=== PATIENT | female | born 1955 | race Caucasian/White ===

== ENCOUNTER 2016-11-26 12:06 | Outpatient (CLI) | payer BC ==
[2016-11-25 18:21] VITALS: BP 130/70; PULSE 58; TEMP 98
[~2016-11-26 12:06] MED LIST: ASPIRIN E.C. 8181 MG PO; LOPRESSOR 550 MG/TAB PO; MULTIVITAMIN FO1 CAP PO; VASOTEC 5MG5 MG/TAB PO; XARELTO10 MG PO
[2016-11-26] MEDS ORDERED: LOPRESSOR 225 MG/TAB PO (12:34)
[2016-11-26] MEDS ORDERED: TAMBOCOR150 MG PO (12:34)
[2016-11-26] MEDS ORDERED: VASOTEC 5MG5 MG/TAB PO (12:35)
[2016-11-26] MEDS ORDERED: COMPLETE SENIOR1 TA1 PO (12:37)
[2016-11-26] MEDS ORDERED: ZYRTEC 10MG10 MG PO (12:37)
[2016-11-26] MEDS ORDERED: CALCIUM 600-D 61 TAB PO (12:38)
[2016-11-26 12:44] VITALS: BP 115/63; PULSE 49; TEMP 97.3
[2016-11-26 15:00] VITALS: BP 143/62; PULSE 50; TEMP 97.5
== END 2016-11-26 15:19 | disposition home or self-care (01) ==
LOC: COL.RAD 12:06
DX: R00.8 Other abnormalities of heart beat (principal)
CPT/HCPCS: C1764

== ENCOUNTER 2017-08-22 06:37 | Day surgery (SDC) | payer BC ==
[2017-08-22] VITALS (15 sets, daily range): BP systolic 111–157; BP diastolic 50–144; PULSE 54–78; TEMP 97.5–98
[~2017-08-22] VITALS: Ht 160.1 cm; Wt 87.3 kg
[~2017-08-22 06:37] MED LIST changes: +CALCIUM 600-D 61 TAB PO; +COMPLETE SENIOR1 TA1 PO; +LOPRESSOR 225 MG/TAB PO; +TAMBOCOR150 MG PO; +ZYRTEC 10MG10 MG PO
[2017-08-22] MEDS ORDERED: MULTAQ400 MG PO (07:01)
[2017-08-22] MEDS ORDERED: LIPITOR 80MG80 MG PO (07:02)
[2017-08-22] MEDS ORDERED: XARELTO20 MG PO (07:32)
[2017-08-22] MEDS ORDERED: ASPIRIN 81M81 MG/TA2 PO (07:32)
[2017-08-22 07:45] LABS: INR 2.1 (0.8-3.0); PROTHROMBIN TIME 24.5 SECONDS (9.7-12.8)
[2017-08-22 07:47] LABS: POTASSIUM 3.8 mmol/L (3.4-5.0)
[2017-08-22 08:21] LABS: THYROID STIMULATING HORMONE 0.412 uIU/mL (0.465-4.680)
== END 2017-08-22 12:35 | disposition home or self-care (01) ==
LOC: COL.CAR 06:37
PROVIDERS: Internal Medicine Interventional Cardiology
DX: I48.0 Paroxysmal atrial fibrillation (principal); Z79.01 Long term (current) use of anticoagulants; Z95.818 Presence of other cardiac implants and grafts; I42.8 Other cardiomyopathies; E78.5 Hyperlipidemia, unspecified; Z88.0 Allergy status to penicillin
CPT/HCPCS: J1200; J2250; J2930; J3010; J7030

== ENCOUNTER 2020-02-09 09:38 | Inpatient (IN) | payer BC ==
[~2020-02-09 09:38] MED LIST changes: +ASPIRIN 81M81 MG/TA2 PO; +LIPITOR 80MG80 MG PO; +MULTAQ400 MG PO; +XARELTO20 MG PO
--- NOTE | 2020-02-09 10:20 | NUR ---
PT SITTING BY WINDOW, DENIES PAIN OR DISCOMFORT, HR REGULAR, BS+, LUNG SOUNDS CTA, PT HAS MED LIST WITH HER. STATES SHE GETS ITCHY WITH IV'S AND THINKS SHE MAY HAVE LIDOCAINE ALLERGY. PT ALERT AND ORIENTED. CHOOSING TO STAY IN PERSONAL CLOTHES AT THIS TIME.
[2020-02-09 10:55] LABS: CALCIUM 9.3 mg/dL (8.4-10.2); CREATININE, serum 0.52 (0.52-1.25); POTASSIUM 4.2 mmol/L (3.4-5.0)
[2020-02-09 11:20] VITALS: BP 128/56; PULSE 50; TEMP 97.6
[2020-02-09] MEDS ORDERED: TOPROL XL 50MG50 MG PO (11:25)
[2020-02-09 16:15] VITALS: BP 97/52; PULSE 45; TEMP 98
--- NOTE | 2020-02-09 17:29 | NUR ---
Dr. Muller informed of ekg results of sinus yaz. he said that anything over 40BPM was ok. pt is not complaining of pain or discomfort. still in pt clothes. iv in RFA, room air, no other needs at this time.
--- NOTE | 2020-02-09 20:10 | NUR ---
At time of assessment, patient is sitting in chair watching TV. No complaints of pain. Heart sounds are regular/normal. Heart rate is 67, Qtc 396 prior to sotalol administration. Lung sounds are clear. Her lower legs appear slightly edematous but there is no pitting. No new concerns at this time. Will continue to monitor.
[2020-02-09 20:21] VITALS: BP 95/53; PULSE 57; TEMP 97.6
[2020-02-09 23:53] VITALS: BP 102/54; PULSE 50; TEMP 98.3
[2020-02-10 03:59] VITALS: BP 122/51; PULSE 52; TEMP 97.4
--- NOTE | 2020-02-10 05:56 | NUR ---
Patient has had an uneventful night with no complaints. Her heart rate has been sustained in sinus bradycardia. Will continue to monitor.
[2020-02-10 07:34] VITALS: BP 118/57; PULSE 48; TEMP 97.9
[2020-02-10 07:35] LABS: CALCIUM 8.9 mg/dL (8.4-10.2); CREATININE, serum 0.55 (0.52-1.25); POTASSIUM 3.9 mmol/L (3.4-5.0)
--- NOTE | 2020-02-10 08:10 | NUR ---
PT IN ROOM UP TO CHAIR, IN [employer], WANTING TO CONTINUE HOME MEDICATION OF ENALAPRIL AND ASPIRIN. DENIES PAIN OR DISCOMFORT, NO OTHER NEEDS AT THIS TIME. EKG ORDERED FOR 1000 FOR 2 HOUR POST SOTOLOL ADMINISTRATION.
--- NOTE | 2020-02-10 09:34 | NUR ---
LUPE met with the patient to discuss discharge plan. The patient lives in [place] with her , Stephen (ph#[phone]). She reports independence with ADLs and does not have any DME. The patient does not have a PCP at this time. She states that she was seeing Margarita Franco, but that she moved to [place]. She states that she does have some providers in mind in [place] that she plans to get in contact with to establish primary care. The patient does not have advanced directives completed, but she was interested in obtaining a form for DPOA-HC. LUPE provided. The patient plans to return home with her upon discharge. No additional needs at this time.
--- NOTE | 2020-02-10 11:23 | NUR ---
First visit from the cable mock up assembler. No needs right now.
[2020-02-10 11:37] VITALS: BP 98/47; PULSE 53; TEMP 97.6
[2020-02-10 16:22] VITALS: BP 106/54; PULSE 51; TEMP 97.9
--- NOTE | 2020-02-10 17:20 | NUR ---
UNEVENTFUL SHIFT UNTIL 1700. PT COMPLAINING OF RASH. VISUALIZED RASH ON INNER THIGH AND OUTER THIGH, SPOT OF RED IRRITATION ON L UPPER ARM WELL. CLAIR CONTACTED AND ORDERED BENADRYL. PT STATES THAT THIS IS NOT NEW FOR HER AND BENADRYL NORMALLY TAKES CARE OF THE ISSUE. DENIES FEELING HOT OR SOB. NO OTHER NEEDS AT THIS TIME.
[2020-02-10 19:36] VITALS: BP 115/51; PULSE 63; TEMP 97.6
--- NOTE | 2020-02-10 20:34 | NUR ---
At time of assessment, patient is awake in the chair. She is alert and oriented, heart sounds normal/regular, lungs clear, 1+ pitting edema in bilat lower extremities, no complaints of pain. Earlier in the day she has developed three separate rashes, on her right outer thigh, left upper/inner arm, and in her alejandra area. She states this rash comes and goes at least three times a year and she takes Benadryl to manage them. Benadryl is administered at this time with her evening medications. RT contacted after sotatlol administration for EKG 2 hours post sotalol. Will continue to monitor.
[2020-02-10 23:43] VITALS: BP 110/58; PULSE 53; TEMP 97.5
[2020-02-11 03:45] VITALS: BP 108/51; PULSE 58; TEMP 98.1
[2020-02-11 07:46] VITALS: BP 96/47; PULSE 55; TEMP 98.1
[2020-02-11 08:05] LABS: CALCIUM 9.1 mg/dL (8.4-10.2); CREATININE, serum 0.57 (0.52-1.25); POTASSIUM 4.3 mmol/L (3.4-5.0)
[2020-02-11 11:36] VITALS: BP 92/54; PULSE 55; TEMP 97.6
[2020-02-11] MEDS ORDERED: BETAPACE 80MG80 MG PO (16:48)
[2020-02-11 17:10] VITALS: BP 98/48; PULSE 59; TEMP 98.8
--- NOTE | 2020-02-11 19:28 | NUR ---
Patient is alert and oriented. rash on right thigh, left inner arm and groin area. patient had an uneventful day. Last sodalol was administered and last EKG was ordered for 1999. Report given to MARK Mckeon.
== END 2020-02-11 20:24 | disposition home or self-care (01) | DRG 310 ==
LOC: MEDICAL 09:38
PROVIDERS: ADMIT Internal Medicine Interventional Cardiology
DX: I48.0 Paroxysmal atrial fibrillation (principal); I44.7 Left bundle-branch block, unspecified; I10 Essential (primary) hypertension; Z71.89 Other specified counseling; Z79.82 Long term (current) use of aspirin